=== PATIENT | male | born 1990 | race American Indian/Alaskan Native ===

== ENCOUNTER 2021-06-12 00:23 | Emergency (ER) | payer MEDICAID ==
[2021-06-12 02:00] LABS: Bilirubin,Urine NEG (Negative); Blood,Urine NEG (Negative); Color,Urine Yellow (Yellow); Protein,Urine <15 mg/dL mg/dL (Negative); Urobilinogen,Urine < 2.0 mg/dL (<2.0)
[2021-06-12 02:05] LABS: Amphetamine Screen,Urine PRESUMPTIVE NEGATIVE; Benzodiazepines Screen,Urine PRESUMPTIVE NEGATIVE; Cannabinoid Screen,Urine PRESUMPTIVE NEGATIVE; Cocaine Screen,Urine PRESUMPTIVE NEGATIVE; Methadone Screen,Urine PRESUMPTIVE NEGATIVE; Opiate Screen,Urine PRESUMPTIVE NEGATIVE
[2021-06-12 02:15] LABS: Basophils # (Auto) 0.1 K/mm3 (0.0-0.1); Basophils % (Auto) 0.7 % (0.0-1.8); Eosinophils # (Auto) 0.2 K/mm3 (0.0-0.4); Eosinophils % (Auto) 1.4 % (0.0-4.3); Hematocrit 42.9 % (35.5-45.6); Hemoglobin 14.4 gm/dl (11.8-15.2); Lymphocytes # (Auto) 4.5 K/mm3 (1.2-5.4); Mean Corpuscular HGB Conc 34 % (32-34); Mean Corpuscular Volume 80 fl (84-94); Monocytes # (Auto) 0.9 K/mm3 (0.0-0.8); Monocytes % (Auto) 5.5 % (0.0-7.3); Platelet Count 295 K/mm3 (140-440); Red Cell Distribution Width 14.6 % (13.2-15.2)
[2021-06-12 02:33] LABS: BUN/Creatinine Ratio 14; Blood Urea Nitrogen 15 mg/dL (9-20); Calcium 9.4 mg/dL (8.4-10.2); Hemolysis Index 4
--- NOTE | 2021-06-12 05:25 | Emergency Department Report ---
HPI - General Chief Complaint: Psych Time Seen by Provider: 06/12/21 05:19 - HPI HPI: Patient came in complaining that for days now has been hearing things and seeing things that are not there. He has a history of schizophrenia as well as seizures. He tells me that he takes his medicines regularly. He currently denies self-harm ideas or desires. Nothing makes it better or worse. The patient is a very poor historian does not seem very interested in answering my questions. ED Past Medical Hx - Past Medical History Additional medical history: Seizures, schizophrenia ED Review of Systems ROS: Stated complaint: VISUAL HALLUCINATIONS Other details as noted in HPI Comment: All other systems reviewed and negative Physical Exam - Physical Exam Vital Signs: Vital Signs 06/12/21 00:57 Temperature 97.7 F Pulse Rate 75 Respiratory 18 Rate Blood Pressure 137/54 [Right] O2 Sat by Pulse 99 Oximetry Physical Exam: Physical Exam Constitutional: General: He is not in acute distress. Appearance: He is not diaphoretic. HENT: Head: Normocephalic. Eyes: Pupils: Pupils are equal, round, and reactive to light. Neck: Musculoskeletal: Normal range of motion. Cardiovascular: Rate and Rhythm: Normal rate and regular rhythm. Pulses: Intact distal pulses. Heart sounds: Normal heart sounds. No murmur. Pulmonary: Effort: No respiratory distress. Breath sounds: No wheezing or rales. Chest: Chest wall: No tenderness. Abdominal: General: There is no distension. Palpations: There is no mass. Tenderness: There is no abdominal tenderness. There is no guarding or rebound. Musculoskeletal: Normal range of motion. Skin: General: Skin is warm and dry. Neurological: Mental Status: He is alert and oriented to person, place, and time. Psychiatric: Mood and Affect: Mood and affect normal. Cognition and Memory: Memory normal. Judgment: Judgment normal. He does not seem under the influence of any psychotic substances. He does not seem to be hallucinating at this time. He is known suicidal. ED Course Vital Signs 06/12/21 00:57 Temperature 97.7 F Pulse Rate 75 Respiratory 18 Rate Blood Pressure 137/54 [Right] O2 Sat by Pulse 99 Oximetry - Reevaluation(s) Reevaluation #1: 06/12/21 05:24 His work-up was within normal limits he is currently medically cleared for psychiatric evaluation. ED Medical Decision Making - Lab Data Result diagrams: 06/12/21 01:53 06/12/21 01:53 Critical care attestation.: If time is entered above; I have spent that time in minutes in the direct care of this critically ill patient, excluding procedure time. ED Disposition Clinical Impression: Psychosis Condition: Stable
--- NOTE | 2021-06-12 13:12 | Event Note ---
Date: 06/12/21 Attempted to see the patient; pt. is drowsy and unable to participate in assessment.
[2021-06-12] MEDS: ALPRAZolam 0.5 MG TAB PO ONE (23:45)
--- NOTE | 2021-06-13 10:15 | Consultation ---
History of Present Illness - Reason for Consult Consult date: 06/13/21 Reason for consult: mental health evaluation - History of Present Psychiatric Illness The patient is 30 year old male with history of schizophrenia. In my encounter with the patient, he is calm,alert and oriented x3. The patient states he came to the ED because " I was feeling like the world is against me; I can't get anything done right." The patient states he gets monthly Invega shot at [facility] in [place] and last had his injection last "middle of month." He denies any current suicidal/homicidal ideation and denies hallucinations. He states he has meds at home. PAST PSYCHIATRIC HISTORY Diagnoses:Schizophrenia Suicide attempts or Self-harm behavior:Denies Prior psychiatric hospitalizations: Yes Substance Abuse history:Denies Previous psychiatric medications tried:Depakote, Trazodone, Invega, Bentropine Outpatient treatment: denies SOCIAL HISTORY Marital Status: Single Living Arrangements: Lives girl friend Employment Status: Unemployed Access to guns/weapons: Denies Education: 12thgrade History of abuse: Denies Legal History: Denies ROS Constitutional: Negative for weight loss EMT: Respiratory: Negative for cough or hemoptysis All other systems reviewed and are negative MENTAL STATUS EXAMINATION General Appearance: Dressed appropriately. Behavior: Calm and cooperative. Good eye contact. Mood: calm Affect: congruent to stated mood Speech: Normal Thought Process: Goal directed Thought Content:Reality oriented Suicidal Ideation:Denies Homicidal Ideation: Denies Hallucinations: Denies Delusions: None elicited Insight and Judgment: Limited Memory/Cognition: Limited Assessment and Plan (1)Schizophrenia Treatment Plan Continue prescribed medications Risks, benefits and alternatives of medications discussed with the patient, questions answered and consent obtained from patient. PSYCHOTHERAPY: Supportive psychotherapy provided MEDICAL: Per primary team DELIRIUM PRECAUTIONS: Please re-orient patient frequently, keep lights on during the day, and minimize benzodiazepines and opiates as these medications could worsen patient's confusion. 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 Animal Pathologist will provide patient with outpatient resources and safety plan. Will sign off. Thank you for the consult. Please contact with any questions and/or concerns. Case discussed with Dr. Irwin who agrees with current disposition Medications and Allergies Medications and Allergies Allergies Allergy/AdvReac Type Severity Reaction Status Date / Time No Known Allergies Allergy Verified 06/12/21 01:02 Mental Status Exam - Vital signs Last Vital Signs Temp 97.3 F L 06/12/21 22:05 Pulse 68 06/12/21 22:05 Resp 18 06/12/21 22:05 BP 92/60 06/12/21 22:05 Pulse Ox 100 06/12/21 22:05 Results Result Diagrams: 06/12/21 01:53 06/12/21 01:53 All other labs normal.
[2021-06-13 12:22] LABS: Hematocrit 47.2 % (35.5-45.6); Hemoglobin 15.8 gm/dl (11.8-15.2); Mean Corpuscular HGB Conc 33 % (32-34); Mean Corpuscular Volume 80 fl (84-94); Platelet Count 319 K/mm3 (140-440); Red Blood Count 5.92 M/mm3 (3.65-5.03); Red Cell Distribution Width 15.3 % (13.2-15.2)
[2021-06-13 12:32] LABS: BUN/Creatinine Ratio 13; Blood Urea Nitrogen 14 mg/dL (9-20); Calcium 9.8 mg/dL (8.4-10.2); Hemolysis Index 7
[2021-06-13 12:41] VITALS: BP 122/85
--- NOTE | 2021-06-13 13:03 | Event Note ---
Date: 06/13/21 The patient was reevaluated by me and found the patient to be calm and cooperative. The psych provider has evaluated the patient and recommended patient for outpatient follow-up. CBC was repeated and found to be within normal limits. Patient otherwise has no medical complaints.
[2021-06-13 13:38] LABS: Band Neutrophils # (Manual) 0.2 K/mm3; Basophils % (Manual) 0 % (0.0-1.8); Total Cells Counted 100
[2021-06-13 13:39] LABS: Target Cells 3+
[2021-06-13 13:40] LABS: Platelet Estimate Consistent w Auto; Spherocytes 2+
== END 2021-06-13 13:28 | disposition home or self-care (01) ==
LOC: EEVIPCON 00:23 → ED 00:23
DX: F29 Unspecified psychosis not due to a substance or known physiological condition (principal); Z20.822 Contact with and (suspected) exposure to COVID-19; Z79.899 Other long term (current) drug therapy
CPT/HCPCS: 36415; 80048; 80164; 80307; 81001; 85007; 85025; 99284; U0003; 80320; G0480

== ENCOUNTER 2021-10-15 14:01 | Emergency (ER) | payer MEDICAID ==
--- NOTE | 2021-10-15 15:41 | Emergency Department Report ---
ED Psych HPI - General Chief Complaint: Psych Stated Complaint: PSYCHIATRIC EPISODE Time Seen by Provider: 10/15/21 14:56 Source: patient, EMS Mode of arrival: Stretcher - History of Present Illness Initial Comments: 31-year-old male with a history of psychosis presented after complaining of hopelessness and suicidal while at a gas station. Here, the patient has a very flat affect and appears depressed, but is saying that he just needs his Invega shot, and that he has missed it for the last 3 months. During my exam patient appears very depressed, but is denying suicidal or homicidal ideations. Patient is also denying hallucinations, currently. Denies aggravating factors. Believes that if he gets his Invega shot, that he will feel better. - Related Data Allergies Allergy/AdvReac Type Severity Reaction Status Date / Time No Known Allergies Allergy Verified 10/15/21 14:08 ED Review of Systems ROS: Stated complaint: PSYCHIATRIC EPISODE Other details as noted in HPI Comment: Unobtainable due to pts medical conditions (psychiatric condition) Constitutional: denies: chills, fever Eyes: denies: eye pain, eye discharge, vision change ENT: denies: ear pain, throat pain Respiratory: denies: cough, shortness of breath, wheezing Cardiovascular: denies: chest pain, palpitations Endocrine: no symptoms reported Gastrointestinal: denies: abdominal pain, nausea, diarrhea Genitourinary: denies: urgency, dysuria Musculoskeletal: denies: back pain, joint swelling, arthralgia Skin: denies: rash, lesions Neurological: denies: headache, weakness, paresthesias Psychiatric: depression, other (patient denies si, but reported to ems and staff). denies: anxiety Hematological/Lymphatic: denies: easy bleeding, easy bruising ED Past Medical Hx - Past Medical History Hx Psychiatric Treatment: Yes Additional medical history: Seizures, schizophrenia - Social History Smoking Status: Never Smoker ED Physical Exam - General Limitations: Other General appearance: alert, in no apparent distress, other (appears depressed) - Head Head exam: Present: atraumatic, normocephalic - Eye Eye exam: Present: normal appearance - ENT ENT exam: Present: mucous membranes moist - Neck Neck exam: Present: normal inspection - Respiratory Respiratory exam: Present: normal lung sounds bilaterally. Absent: respiratory distress - Cardiovascular Cardiovascular Exam: Present: regular rate, normal rhythm. Absent: systolic murmur, diastolic murmur, rubs, gallop - GI/Abdominal GI/Abdominal exam: Present: soft, normal bowel sounds. Absent: distended, tenderness - Rectal Rectal exam: Present: deferred - Extremities Exam Extremities exam: Present: normal inspection - Back Exam Back exam: Present: normal inspection - Neurological Exam Neurological exam: Present: alert, oriented X3 - Psychiatric Psychiatric exam: Present: depressed, flat affect, suicidal ideation. Absent: manic, homicidal ideation - Skin Skin exam: Present: warm, dry, intact, normal color. Absent: rash ED Course Vital Signs 10/15/21 10/15/21 14:06 15:07 Temperature 98 F Pulse Rate 64 Respiratory 16 Rate Blood Pressure 102/62 [Left] O2 Sat by Pulse 98 99 Oximetry - Reevaluation(s) Reevaluation #1: 10/15/21 19:24 31 yo male cleared for psychiatric evaluation. ED Medical Decision Making - Lab Data Result diagrams: 10/15/21 15:26 10/15/21 15:26 - Differential Diagnosis Major depressive disorder, recurrent psychosis, noncompliance end-stage renetta Critical care attestation.: If time is entered above; I have spent that time in minutes in the direct care of this critically ill patient, excluding procedure time. ED Disposition Clinical Impression: Suicidal ideation Depression Qualifiers: Depression Type: unspecified Qualified Code(s): F32.A - Depression, unspecified Disposition: 30 STILL A PATIENT Is pt being admited?: No Condition: Stable Referrals: PRIMARY CARE, [Primary Care Provider] - 3-5 Days
[2021-10-15 16:07] LABS: Basophils # (Auto) 0.1 K/mm3 (0.0-0.1); Eosinophils # (Auto) 0.1 K/mm3 (0.0-0.4); Eosinophils % (Auto) 0.9 % (0.0-4.3); Hematocrit 41.9 % (35.5-45.6); Hemoglobin 14.5 gm/dl (11.8-15.2); Lymphocytes # (Auto) 3.2 K/mm3 (1.2-5.4); Lymphocytes % (Auto) 29.3 % (13.4-35.0); Mean Corpuscular HGB Conc 35 % (32-34); Mean Corpuscular Volume 80 fl (84-94); Monocytes # (Auto) 0.7 K/mm3 (0.0-0.8); Monocytes % (Auto) 6.3 % (0.0-7.3); Platelet Count 291 K/mm3 (140-440); Red Blood Count 5.25 M/mm3 (3.65-5.03); Red Cell Distribution Width 14.5 % (13.2-15.2)
[2021-10-15 16:15] LABS: BUN/Creatinine Ratio 10; Blood Urea Nitrogen 10 mg/dL (9-20); Calcium 9.1 mg/dL (8.4-10.2); Hemolysis Index 4
[2021-10-15] MEDS ORDERED: SODIUM CHLORIDE 0.9% 1000 ML 1,000 ML IV ONE ×2 (20:41→22:41)
[2021-10-15 21:00] LABS: Mucus,Urine 2+ /HPF
[2021-10-15 21:03] LABS: Bilirubin,Urine Negative (Negative); Blood,Urine Negative (Negative); Color,Urine Yellow (Yellow); Protein,Urine <15 mg/dL mg/dL (Negative); Urobilinogen,Urine < 2.0 mg/dL (<2.0)
[2021-10-15 21:22] LABS: Amphetamine Screen,Urine Negative; Benzodiazepines Screen,Urine Negative; Cannabinoid Screen,Urine Negative; Cocaine Screen,Urine Negative; Methadone Screen,Urine Negative; Opiate Screen,Urine Negative
[2021-10-16 08:21] VITALS: BP 98/51
--- NOTE | 2021-10-16 10:11 | Consultation ---
History of Present Illness - Reason for Consult Consult date: 10/16/21 Reason for consult: mental health evaluation - History of Present Psychiatric Illness Per ED Note: 31-year-old male with a history of psychosis presented after complaining of hopelessness and suicidal while at a gas station. Here, the patient has a very flat affect and appears depressed, but is saying that he just needs his Invega shot, and that he has missed it for the last 3 months. During my exam patient appears very depressed, but is denying suicidal or homicidal ideations. Patient is also denying hallucinations, currently. Denies aggravating factors. Believes that if he gets his Invega shot, that he will feel better. The patient was seen today. He is withdrawn and constricted. The patient he came to the ED because his "blood pressure was low." The presents as bizarre and tangential. He denies having psych history but states he goes to "[facility] Will continue sending inpatient. PAST PSYCHIATRIC HISTORY Diagnoses: schizophrenia Suicide attempts or Self-harm behavior: Unknown Prior psychiatric hospitalizations: Unknown Substance Abuse history: Unknown Previous psychiatric medications tried: Invega Outpatient treatment: yes PAST MEDICAL HISTORY: None reported Family Psychiatric History: None reported or documented SOCIAL HISTORY Marital Status: single Living Arrangements: Lives with uncle Employment Status:unemployed Access to guns/weapons: Denies Education: College student History of Abuse: No Legal History: Denies REVIEW OF SYSTEMS Constitutional: Negative for weight loss ENT: Negative for stridor Respiratory: Negative for cough or hemoptysis All other systems reviewed and are negative MENTAL STATUS EXAMINATION General Appearance and Behavior: Age appropriate, good hygiene, wearing appropriate clothes, good eye contact, calm, cooperative Cooperation: Participating/engaged Psychomotor Behavior: Psychomotor normal Mood:withdrawn Affect and affective range: congruent with stated mood Thought Process: Tangential Thought Content: Reality Oriented Speech: Normal tone and pace Suicidal Ideation: Denies Homicidal Ideation: Denies Hallucinations: Denies Delusions: None elicited Impulse Control: Normal Insight and Judgment: Limited insight and judgment Memory: Normal Attention: Attentive Orientation: Alert, oriented Assessment and Plan Schizophrenia Disorder Treatment Plan 1013 Continue home Meds Risperdal 1mg po BID Trazodone 50 mg po QHS Risks, benefits and alternatives of medications discussed with the patient, qu estions answered and consent obtained from patient. PSYCHOTHERAPY: Supportive psychotherapy provided MEDICAL: Per primary team DELIRIUM PRECAUTIONS: Please re-orient patient frequently, keep lights on during the day, and minimize benzodiazepines and opiates as these medications could worsen patient's confusion. 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 Will follow. Thank you for the consult. Please contact with any questions and/or concerns. Case staffed with Dr. Irwin Medications and Allergies Medications and Allergies Allergies Allergy/AdvReac Type Severity Reaction Status Date / Time No Known Allergies Allergy Verified 10/15/21 14:08 Mental Status Exam - Vital signs Last Vital Signs Temp 97.9 F 10/16/21 08:20 Pulse 62 10/16/21 08:20 Resp 18 10/16/21 08:20 BP 98/51 10/16/21 08:20 Pulse Ox 98 10/16/21 08:21 Results Result Diagrams: 10/15/21 15:26 10/15/21 15:26 Abnormal lab results 10/15/21 10/15/21 10/15/21 Range/Units 15:26 15:26 15:26 RBC 5.25 H (3.65-5.03) M/mm3 MCV 80 L (84-94) fl MCHC 35 H (32-34) % Urine WBC (Auto) (0.0-6.0) /HPF Salicylates < 0.3 L (2.8-20.0) mg/dL Acetaminophen 5.0 L (10.0-30.0) ug/mL 10/15/21 Range/Units 20:35 RBC (3.65-5.03) M/mm3 MCV (84-94) fl MCHC (32-34) % Urine WBC (Auto) 10.0 H (0.0-6.0) /HPF Salicylates (2.8-20.0) mg/dL Acetaminophen (10.0-30.0) ug/mL All other labs normal.
[2021-10-16] MEDS ORDERED: risperiDONE 1 MG TAB PO SCH (11:00)
[2021-10-16] MEDS ORDERED: LORazepam 1 MG TAB PO ONE (14:41)
--- NOTE | 2021-10-16 15:55 | Emergency Department Report ---
Blank Doc - Documentation Documentation: This is a 31-year-old male with a history of psychosis who has now been accepted to an inpatient psychiatric facility. I made a [id number] with him today, and he appears agitated, and was given p.o. Ativan.
[2021-10-16] MEDS ORDERED: traZODone 50 MG TAB PO SCH (22:00)
== END 2021-10-16 15:53 | disposition still patient (30) ==
LOC: ED 14:01
DX: R45.851 Suicidal ideations (principal); F32.A Depression, unspecified; Z20.822 Contact with and (suspected) exposure to COVID-19
CPT/HCPCS: 36415; 80048; 80307; 81001; 85025; 87086; 96360; 96361; 99285; J7030; U0003; 80320; G0480